=== PATIENT | male | born 1980 | race Hispanic/Latino ===

== ENCOUNTER 2019-02-23 23:57 | Emergency (ER) | payer BC ==
[2019-02-24 00:20] VITALS: PULSE 82
[2019-02-24] MEDS ORDERED: Sodium Chloride 0.9% 1,000 ML IV ONE (00:26)
[2019-02-24 00:57] LABS: BASO # 0.1 K/uL (0.0-0.2); BASO % 0.9 % (0.0-2.0); EOS # 0.1 K/uL (0.0-0.7); EOS % 0.8 % (0.0-4.0); HEMOGLOBIN 15.2 g/dL (12.0-18.0); LYMPH # 1.5 K/uL (1.0-4.3); LYMPH % 16.3 % (20.0-40.0); MEAN CELL VOLUME 85.5 fL (80.0-94.0); MEAN CORPUSCULAR HEMOGLOBIN 29.4 pg (27.0-31.0); MEAN CORPUSCULAR HGB CONC 34.4 g/dL (33.0-37.0); MEAN PLATELET VOLUME 9.6 fL (7.2-11.7); MONO # 0.8 K/uL (0.0-0.8); MONO % 8.9 % (0.0-10.0); NEUT # 6.5 K/uL (1.8-7.0); NEUT % 73.1 % (50.0-75.0); NRBC % 0.1 % (0.0-2.0); RBC 5.15 Mil/uL (4.40-5.90); RED CELL DISTRIBUTION WIDTH 13.9 % (11.5-14.5); WHITE BLOOD COUNT 8.9 K/uL (4.8-10.8)
[2019-02-24 01:02] LABS: SQUAMOUS EPITHIAL < 1 /hpf (0-5); URINE BACTERIA RARE (<OCC); URINE BILIRUBIN NEGATIVE (NEGATIVE); URINE BLOOD 2+ (NEGATIVE); URINE CLARITY Hazy (Clear); URINE COLOR Amber (YELLOW); URINE GLUCOSE (UA) NORMAL (Normal); URINE LEUKOCYTE ESTERASE 1+ Leu/uL (Negative); URINE PROTEIN NEGATIVE (NEGATIVE)
[2019-02-24 01:08] LABS: ALB/GLOB RATIO 1.2 (1.0-2.1); ALBUMIN 4.5 g/dL (3.5-5.0); ALT/SGPT 100 U/L (21-72); AST/SGOT 71 U/L (17-59); BLOOD UREA NITROGEN 14 mg/dL (9-20); CALCIUM 9.3 mg/dl (8.6-10.4); GFR NON-AFRICAN AMERICAN > 60; INR 1.1; LIPASE 168 U/L (23-300); PARTIAL THROMBOPLASTIN TIME 35.5 SECONDS (21-34); PROTHROMBIN TIME 12.3 SECONDS (9.7-12.2)
[2019-02-24] MEDS ORDERED: cefTRIAXone IV 1 gm in Dextros 50 ML IVPB ONE (01:08)
--- NOTE | 2019-02-24 01:32 | C.PDOC ---
History Of Present Illness 38 y/o male comes in to ED complaining of dysuria and flank pain since 3 days ago, with an episode of hematuria. He denies fever or other complaints. Time Seen by Provider: 02/24/19 00:24 Chief Complaint (Nursing): Back Pain History Per: Patient History/Exam Limitations: no limitations Onset/Duration Of Symptoms: Days Current Symptoms Are (Timing): Still Present Past Medical History Reviewed: Historical Data, Nursing Documentation, Vital Signs Vital Signs: Last Vital Signs Temp 99.3 F 02/24/19 00:14 Pulse 82 02/24/19 00:14 Resp 22 02/24/19 00:14 BP 135/85 02/24/19 00:14 Pulse Ox 94 L 02/24/19 00:14 Primary Care Provider: FAMILY PROVIDER,NO Family History: States: No Known Family Hx - Social History Hx Alcohol Use: Yes Hx Substance Use: No - Immunization History Hx Tetanus Toxoid Vaccination: No Hx Influenza Vaccination: No Hx Pneumococcal Vaccination: No Review Of Systems Except As Marked, All Systems Reviewed And Found Negative. Constitutional: Negative for: Fever, Chills Gastrointestinal: Positive for: Other (Flank pain). Negative for: Nausea, Vomiting Genitourinary: Positive for: Dysuria, Hematuria Physical Exam - Physical Exam Appears: Non-toxic, No Acute Distress Skin: Warm, Dry Head: Normacephalic Eye(s): bilateral: Normal Inspection Oral Mucosa: Moist Neck: Supple Cardiovascular: Rhythm Regular, No Murmur Respiratory: Normal Breath Sounds, No Rales, No Rhonchi, No Wheezing Gastrointestinal/Abdominal: Soft, No Tenderness, No Guarding, No Rebound Back: No CVA Tenderness Extremity: Bilateral: Atraumatic, Normal ROM Neurological/Psych: Oriented x3, Normal Speech ED Course And Treatment - Laboratory Results Result Diagrams: 02/24/19 00:52 02/24/19 00:52 Lab Results: PT 12.3 SECONDS (9.7-12.2) H 02/24/19 00:52 INR 1.1 02/24/19 00:52 APTT 35.5 SECONDS (21-34) H 02/24/19 00:52 Total Bilirubin 0.6 mg/dL (0.2-1.3) 02/24/19 00:52 AST 71 U/L (17-59) H 02/24/19 00:52 ALT 100 U/L (21-72) H 02/24/19 00:52 Alkaline Phosphatase 67 U/L (38-126) 02/24/19 00:52 Total Protein 8.3 g/dL (6.3-8.3) 02/24/19 00:52 Albumin 4.5 g/dL (3.5-5.0) 02/24/19 00:52 Globulin 3.8 gm/dL (2.2-3.9) 02/24/19 00:52 Albumin/Globulin Ratio 1.2 (1.0-2.1) 02/24/19 00:52 Lipase 168 U/L (23-300) 02/24/19 00:52 Urine Color Sandra (YELLOW) 02/24/19 00:52 Urine Clarity Hazy (Clear) 02/24/19 00:52 Urine pH 5.0 (5.0-8.0) 02/24/19 00:52 Ur Specific Anderson 1.010 (1.003-1.030) 02/24/19 00:52 Urine Protein Negative mg/dL (NEGATIVE) 02/24/19 00:52 Urine Glucose (UA) Normal mg/dL (Normal) 02/24/19 00:52 Urine Ketones Negative mg/dL (NEGATIVE) 02/24/19 00:52 Urine Blood 2+ (NEGATIVE) H 02/24/19 00:52 Urine Nitrate Positive (NEGATIVE) H 02/24/19 00:52 Urine Bilirubin Negative (NEGATIVE) 02/24/19 00:52 Urine Urobilinogen 4.0 mg/dL (0.2-1.0) 02/24/19 00:52 Ur Leukocyte Esterase 1+ Johnson/uL (Negative) H 02/24/19 00:52 Urine WBC (Auto) 364 /hpf (0-5) H 02/24/19 00:52 Urine RBC (Auto) 19 /hpf (0-3) H 02/24/19 00:52 Ur Squamous Epith Cells < 1 /hpf (0-5) 02/24/19 00:52 Urine Bacteria Rare (<OCC) 02/24/19 00:52 O2 Sat by Pulse Oximetry: 94 (RA) Pulse Ox Interpretation: Abnormal Medical Decision Making Medical Decision Making: ro uti/pyelo Plan: --Abd/Pel CT --Labs --UA --IV fluids --Tylenol --Rocephin labs neg. urine (+)nitrate. ct neg for kidney stones. pain resolve din er. in er pt in nad. specifically request dc home and states will return with worsening. Disposition - Disposition Disposition: HOME/ ROUTINE Disposition Time: 02:57 Condition: STABLE Additional Instructions: return to er with worsening symptoms or concerns. Prescriptions: Cefpodoxime [Vantin] 100 mg PO BID #20 tab Instructions: Urinary Tract Infections in Adults Forms: [employer] (K[place]z) - Clinical Impression Clinical Impression: UTI (urinary tract infection) - Scribe Statement The provider has reviewed the documentation as recorded by the Dennise Amin Provider Attestation: All medical record entries made by the Bandaribkaylah were at my direction and personally dictated by me. I have reviewed the chart and agree that the record accurately reflects my personal performance of the history, physical exam, medical decision making, and the department course for this patient. I have also personally directed, reviewed, and agree with the discharge instructions and disposition.
[2019-02-24 03:17] VITALS: BP 110/72; RESP 20; TEMP 99; O2SAT 98
--- NOTE | 2019-02-24 10:20 | CT ---
Date of service: 02/24/2019 PROCEDURE: CT Abdomen and Pelvis without intravenous contrast HISTORY: flank pain/hematuria COMPARISON: None. TECHNIQUE: Multiple contiguous axial images were performed through the abdomen and pelvis without the use of intravenous contrast. Subsequently, sagittal and coronal reformatted images were obtained. Radiation dose: Total exam DLP = 1094.6 mGy-cm. This CT exam was performed using one or more of the following dose reduction techniques: Automated exposure control, adjustment of the mA and/or kV according to patient size, and/or use of iterative reconstruction technique. FINDINGS: LOWER THORAX: Lung bases are clear. LIVER: Fatty infiltration of the liver. Focal fatty sparing adjacent to the gallbladder fossa. GALLBLADDER AND BILE DUCTS: Contracted gallbladder. PANCREAS: Unremarkable. No gross lesion or ductal dilatation. SPLEEN: Unremarkable. ADRENALS: Unremarkable. No mass. KIDNEYS AND URETERS: Unremarkable. No hydronephrosis. No solid mass. VASCULATURE: Unremarkable. No aortic aneurysm. No aortic atherosclerotic calcification or mural plaque present. BOWEL: Unremarkable. No obstruction. No gross mural thickening. APPENDIX: Unremarkable. Normal appendix. PERITONEUM: Unremarkable. No free fluid. No free air. LYMPH NODES: Unremarkable. No enlarged lymph nodes. BLADDER: Mild thickening of the urinary bladder. REPRODUCTIVE: Unremarkable. BONES: No acute fracture. OTHER FINDINGS: None. IMPRESSION: Mild diffuse thickening of the urinary bladder which may represent a mild cystitis. Clinical correlation. Fatty infiltration of the liver. A preliminary report was generated 2:37 a.m. on 02/24/[address] Daina Pagan from [employer].
== END 2019-02-24 03:15 | disposition home or self-care (01) ==
LOC: C.ER 23:57
DX: N39.0 Urinary tract infection, site not specified (principal)
CPT/HCPCS: 74176; 80053; 81001; 82550; 83690; 85025; 85610; 85730; 96361; 96374; 99283; J0696; J7030